=== PATIENT | female | born 1990 | race Asian ===

== ENCOUNTER 2021-10-01 11:22 | Outpatient (CLI) | payer BC, MEDICAID ==
[2021-10-02 12:54] LABS: SARS-CoV-2 PCR by NAA Not Detected (NotDetected)
== END 2021-10-01 11:23 | disposition home or self-care (01) ==
LOC: CSHLAB 11:22
PROVIDERS: ATTEND Obstetrics & Gynecology
DX: Z20.822 Contact with and (suspected) exposure to COVID-19 (principal)
CPT/HCPCS: U0003; U0005

== ENCOUNTER 2021-10-05 19:00 | Inpatient (IN) | payer BC, OTHER ==
[~2021-10-05 19:00] MED LIST: Bupivacaine 0.25% HCL 30 ML VIAL ONE
[2021-10-05 20:23] VITALS: BMI 37.0
[2021-10-05] MEDS ORDERED: HYDROcodone/Acetaminophen 5/325 mg Tablet PO PRN (20:52)
[2021-10-05] MEDS ORDERED: Acetaminophen 500 MG TAB PO PRN (20:52)
[2021-10-05] MEDS ORDERED: Lidocaine 1% (PF) 30 ML VIAL SC PRN (20:52)
[2021-10-05] MEDS ORDERED: Ondansetron PF 4 MG/2 ML Vial IVP PRN (20:52)
[2021-10-05] MEDS ORDERED: Butorphanol Tartrate 1 MG/ML VIAL SLOW IVP PRN (20:52)
[2021-10-05] MEDS ORDERED: Carboprost 250 MCG/ML AMP IM PRN (20:52)
[2021-10-05] MEDS ORDERED: Zolpidem Tartrate 5 MG TAB PO PRN (20:52)
[2021-10-05] MEDS ORDERED: Methylergonovine 0.2 MG/ML VIAL IM PRN (20:52)
[2021-10-05] MEDS ORDERED: Docusate 100 MG CAP PO PRN (20:52)
[2021-10-05] MEDS ORDERED: Misoprostol 200 MCG TAB PR PRN (20:52)
[2021-10-05] MEDS ORDERED: Promethazine HCl 25 MG/ML VIAL IM PRN (20:52)
[2021-10-05] MEDS ORDERED: Ibuprofen 800 MG TAB PO PRN (20:52)
[2021-10-05] MEDS ORDERED: Diphenoxylate HCl/Atropine Tablet PO PRN ×2 (20:52)
[2021-10-05] MEDS ORDERED: NS w/ Oxytocin 30 units 500 ML IV SCH ×2 (21:00)
[2021-10-05] MEDS ORDERED: Misoprostol 100 MCG TAB VAG SCH (21:00)
[2021-10-05] MEDS ORDERED: Lactated Ringer's 1,000 ML IV SCH (22:00)
[2021-10-05] MEDS: hydrALAZINE 20 MG/ML VIAL SLOW IVP PRN ×2 (22:30→23:07)
[2021-10-06 00:05] LABS: ALT (SGPT) 12 U/L (8-55); AST (SGOT) 15 U/L (5-34); Albumin 3.6 g/dL (3.5-5.0); Alkaline Phosphatase 144 U/L (40-110); Anion Gap 13 mmol/L (10-20); BUN (Urea Nitrogen) 13 mg/dL (7.0-18.7); Bilirubin, Total 0.2 mg/dL (0.2-1.2); Calc. Creatinine Clearance 201 mL/min (70-130); Calcium 9.4 mg/dL (7.8-10.44); Carbon Dioxide 20 mmol/L (22-29); Chloride 107 mmol/L (98-107); Globulin 3.2 g/dL (2.4-3.5); Glucose 94 mg/dL (70-105); Protein, Total 6.8 g/dL (6.0-8.3); Sodium 136 mmol/L (136-145)
[2021-10-06 00:12] LABS: Creatinine, Urine 277.19 mg/dL (47-110)
[2021-10-06] MEDS ORDERED: Labetalol HCl 200 MG TAB PO SCH (02:00)
[2021-10-06] MEDS ORDERED: Magnesium Sulfate 20 GM/WATER 500 ML BAG IVPB SCH (08:00)
[2021-10-06] MEDS ORDERED: hydrALAZINE 20 MG/ML VIAL ONE (08:11)
[2021-10-06] MEDS ORDERED: Magnesium Sulfate 20 gm/500 ml 20 GM/500 ML BAG ONE (08:19)
[2021-10-06] MEDS ORDERED: Labetalol HCl 100 MG/20 ML VIAL ONE (08:30)
[2021-10-06] MEDS ORDERED: Fentanyl 2 mcg/Bup 0.1% Cadd 100 ML ONE (09:31)
[2021-10-06] MEDS ORDERED: Hydrocerin (Eucerin) Cream 120 gm Jar TOP PRN (10:15)
[2021-10-06] MEDS ORDERED: Naloxone HCl 0.4 mg/ml Vial IVP PRN ×2 (10:15)
[2021-10-06] MEDS ORDERED: diphenhydrAMINE 50 MG/ML VIAL IVP PRN (10:15)
[2021-10-06] MEDS ORDERED: Lactated Ringer's 500 ML IV PRN (10:15)
[2021-10-06] MEDS ORDERED: Fentanyl 2 mcg/Bupivacaine 0.1% Cassette 100 ML EPIDURAL SCH (10:15)
[2021-10-06] MEDS ORDERED: ePHEDrine Sulfate 50 MG/10 ML VIAL SLOW IVP PRN (10:15)
[2021-10-06] MEDS ORDERED: Communication Order-Pharmacy FS SCH (10:15)
[2021-10-06] MEDS ORDERED: Ondansetron PF 4 MG/2 ML Vial IVP PRN (10:15)
[2021-10-06] MEDS ORDERED: Acetaminophen 325 MG TAB PO PRN (10:15)
[2021-10-06] MEDS ORDERED: Promethazine HCl 25 MG/ML VIAL IM PRN (10:15)
[2021-10-06] MEDS ORDERED: Calcium Gluc 4.6 MEQ/10 ML (100 MG/ML) SLOW IVP PRN ×2 (10:55→11:00)
[2021-10-06] MEDS ORDERED: Calcium Carbonate 500 MG ChewTAB PO PRN (13:35)
[2021-10-06] MEDS: Magnesium Sulfate 20 gm/500 ml 20 GM/500 ML BAG IVPB SCH (16:45)
[2021-10-06] MEDS: Labetalol HCl 100 MG/20 ML VIAL SLOW IVP SCH ×2 (19:26→19:57)
[2021-10-06] MEDS ORDERED: Diphenoxylate HCl/Atropine Tablet PO PRN ×3 (21:40→21:50)
[2021-10-06] MEDS ORDERED: Carboprost 250 MCG/ML AMP IM SCH (21:45)
[2021-10-07] MEDS: Magnesium Sulfate 20 gm/500 ml 20 GM/500 ML BAG IVPB SCH (03:28)
[2021-10-07] MEDS ORDERED: Boostrix 0.5 ML (Tdap) VIAL IM ONE (06:15)
[2021-10-07] MEDS ORDERED: Bisacodyl 10 MG SUPP PR PRN (06:15)
[2021-10-07] MEDS ORDERED: NS w/ Oxytocin 30 units 500 ML IV SCH (06:15)
[2021-10-07] MEDS ORDERED: Lanolin Ointment 7 GM TUBE TOP PRN (06:15)
[2021-10-07] MEDS ORDERED: Preparation H Ointment 28 GM TUBE PR PRN (06:15)
[2021-10-07] MEDS ORDERED: hydrALAZINE 20 MG/ML VIAL SLOW IVP PRN (06:15)
[2021-10-07] MEDS ORDERED: Measles/Mumps/Rubella 10 MCG/0.5 ML VIAL SC ONE (06:15)
[2021-10-07] MEDS ORDERED: HYDROcodone/Acetaminophen 5/325 mg Tablet PO PRN (06:15)
[2021-10-07] MEDS ORDERED: Benzocaine-Menthol 82.5 ML CAN TOP PRN (06:15)
[2021-10-07] MEDS ORDERED: Milk Of Magnesia 30 ML UDCUP PO PRN (06:15)
[2021-10-07] MEDS ORDERED: Varicella virus, LIVE 0.5 ML VIAL SC ONE (06:15)
[2021-10-07 21:19] LABS: #Eosinphils 0.1 10x3/uL (0.0-0.5); #Monocytes 0.6 10x3/uL (0.0-1.1); #Neutrophils 8.2 10x3/uL (1.5-8.4); %Basophils 0.4 % (0.0-2.0); %Eosinophils 0.6 % (0.0-6.0); %Lymphocytes 17.3 % (18.0-47.0); %Monocytes 5.7 % (0.0-10.0); %Neutrophils 75.6 % (40.0-75.0); Hemoglobin 8.7 g/dL (12.0-15.5); Mean Corpuscular HGB CONC 33.6 g/dL (32.0-36.0); Mean Corpuscular Hemoglobin 27.4 pg (27.0-33.0); Mean Corpuscular Volume 81.7 fl (81.6-98.3); Mean Platelet Volume 10.3 fl (7.4-10.4); Platelet Count 333 10x3/uL (150-450); RBC Distribution Width 13.9 % (11.5-14.5); Red Blood Cell (RBC) Count 3.17 10x6/uL (3.90-5.03); White Blood Cell (WBC) Count 10.8 10x3/uL (3.5-10.5)
[2021-10-07] MEDS: Docusate 100 MG CAP PO SCH (21:58)
[2021-10-08 04:41] LABS: Hemoglobin 8.4 g/dL (12.0-15.5); Mean Corpuscular Hemoglobin 29.1 pg (27.0-33.0); Mean Platelet Volume 10.7 fl (7.4-10.4); Platelet Count 313 10x3/uL (150-450); RBC Distribution Width 13.9 % (11.5-14.5); Red Blood Cell (RBC) Count 2.89 10x6/uL (3.90-5.03)
[2021-10-08] MEDS: Docusate 100 MG CAP PO SCH ×2 (07:59→08:38)
[2021-10-08] MEDS: Ferrous Sulfate 325 MG TAB PO SCH ×2 (08:00→08:37)
[2021-10-08] MEDS: Prenatal Vitamin 1 TAB PO SCH ×2 (08:00→08:37)
[2021-10-08 11:28] VITALS: BP 130/75; TEMP 98.2
== END 2021-10-08 12:55 | disposition home or self-care (01) | DRG 807 ==
LOC: CSHLD 19:26 → CSHPP 10-07 20:52
PROVIDERS: ADMIT Obstetrics & Gynecology; ATTEND Obstetrics & Gynecology
PROC: 10E0XZZ Delivery of Products of Conception, External Approach (ICD-10-PCS; principal; 2021-10-06)
PROC: 10907ZC Drainage of Amniotic Fluid, Therapeutic from Products of Conception, Via Natural or Artificial Opening (ICD-10-PCS; 2021-10-06)
PROC: 3E033VJ Introduction of Other Hormone into Peripheral Vein, Percutaneous Approach (ICD-10-PCS; 2021-10-06)
PROC: 3E0P7VZ Introduction of Hormone into Female Reproductive, Via Natural or Artificial Opening (ICD-10-PCS; 2021-10-06)
DX: O11.4 Pre-existing hypertension with pre-eclampsia, complicating childbirth (principal); Z37.0 Single live birth; Z3A.37 37 weeks gestation of pregnancy; Z20.822 Contact with and (suspected) exposure to COVID-19; O10.02 Pre-existing essential hypertension complicating childbirth
CPT/HCPCS: 36415; 51702; 80053; 82570; 84156; 85025; 85027; 86850; 86900; 86901; J0360; J2590; J3475; J7120; S0020

== ENCOUNTER 2023-04-17 07:45 | Emergency (ER) | payer BC, MEDICAID, OTHER ==
[2023-04-17] MEDS ORDERED: Ibuprofen 200 MG TAB ONE (08:16)
== END 2023-04-17 08:52 | disposition home or self-care (01) ==
LOC: CSHERS 07:45
DX: S82.61XA Displaced fracture of lateral malleolus of right fibula, initial encounter for closed fracture (principal); F17.210 Nicotine dependence, cigarettes, uncomplicated; X50.1XXA Overexertion from prolonged static or awkward postures, initial encounter